=== PATIENT | female | born 1960 | race Caucasian/White ===

== ENCOUNTER 2024-09-25 07:04 | Day surgery (SDC) | payer BC, OTHER ==
[~2024-09-25 07:04] MED LIST: Sodium Chloride 0.9% 10 ML Syringe FLUSH PRN
[2024-09-25] MEDS: Lactated Ringers 1,000 ML IV SCH (07:46)
[2024-09-25] MEDS ORDERED: Midazolam 1 MG/ML 2 ML SDV ONE (08:01)
[2024-09-25] MEDS ORDERED: Propofol 200 MG/20 ML SDV ONE (08:01)
[2024-09-25 10:17] VITALS: BP 145/60; PULSE 80
== END 2024-09-25 09:55 | disposition home or self-care (01) ==
LOC: KA.SDS 07:04
PROVIDERS: ATTEND Family Medicine
DX: Z12.11 Encounter for screening for malignant neoplasm of colon (principal); K57.30 Diverticulosis of large intestine without perforation or abscess without bleeding; K64.4 Residual hemorrhoidal skin tags; K59.00 Constipation, unspecified; E78.2 Mixed hyperlipidemia; F41.1 Generalized anxiety disorder; Z86.0101 Personal history of adenomatous and serrated colon polyps
CPT/HCPCS: 00811; 45378; J2250; J2704; J7120